=== PATIENT | male | born 1950 | race Caucasian/White ===

== ENCOUNTER → 2016-09-24 | Outpatient (REF) | payer MEDICARE ==
[~2016-09-24] MED LIST: ATEN50TA2 PO; LORA1TAB12 PO; SYMB80INH INH
[2016-09-24 11:41] LABS: FOLATE 12.7 NG/ML (>5.4)
== END ==
LOC: M SFHCCLAY 08:39
PROVIDERS: ATTEND Family Medicine
DX: R41.3 Other amnesia (principal); Z11.59 Encounter for screening for other viral diseases
CPT/HCPCS: 82607; 82746; 84443; 86803; G0463

== ENCOUNTER → 2018-02-27 | Outpatient (REF) | payer MEDICARE, MEDICAID | LOC: M SFHCCLAY 13:48 | PROVIDERS: ATTEND Family Medicine | DX: L97.919 Non-pressure chronic ulcer of unspecified part of right lower leg with unspecified severity (principal); I83.019 Varicose veins of right lower extremity with ulcer of unspecified site | CPT/HCPCS: 87070; 87077; 87186; G0463 ==

== ENCOUNTER → 2018-06-28 | Outpatient (REF) | payer MEDICARE ==
[2018-06-28 17:10] LABS: ALBUMIN 3.9 GM/DL (3.2-5.2); ALT/SGPT 26 U/L (12-78); BILIRUBIN,TOTAL 0.7 MG/DL (0.2-1.0); BLOOD UREA NITROGEN 10 MG/DL (7-18); CALCIUM LEVEL 8.8 MG/DL (8.8-10.2); CARBON DIOXIDE LEVEL 33 MEQ/L (21-32); CHLORIDE LEVEL 105 MEQ/L (98-107); CHOLESTEROL LEVEL 137 MG/DL (<200); CHOLESTEROL RISK RATIO 2.978 (<5); GLOMERULAR FILTRATION RATE > 60.0 (>49); GLUCOSE, FASTING 89 MG/DL (70-100); HDL CHOLESTEROL 46 MG/DL (>40); LDL CHOLESTEROL 80 MG/DL (<100); NON-HDL-C 91 MG/DL; POTASSIUM SERUM 4.2 MEQ/L (3.5-5.1); SODIUM LEVEL 140 MEQ/L (136-145); TOTAL PROTEIN 6.7 GM/DL (6.4-8.2); TRIGLYCERIDES LEVEL 55 MG/DL (<150)
[2018-06-28 17:27] LABS: BASO # 0.1 10^3/uL (0.0-0.2); BASO % 0.9 % (0.0-1.0); EOS # 0.4 10^3/uL (0.0-0.50); HEMATOCRIT 44.3 % (42.0-52.0); HEMOGLOBIN 14.9 g/dl (13.5-17.5); LYMPH # 1.5 10^3/uL (1.5-4.5); LYMPH % 21.5 % (24.0-44.0); MEAN CORPUSCULAR HEMOGLOBIN 29.2 pg (27.0-33.0); MEAN CORPUSCULAR HGB CONC 33.6 g/dl (32.0-36.5); MEAN CORPUSCULAR VOLUME 86.9 fl (80.0-96.0); MONO # 0.5 10^3/uL (0.0-0.8); MONO % 7.3 % (0.0-5.0); NEUTROPHILS # 4.6 10^3/uL (1.8-7.7); PLATELET COUNT, AUTOMATED 242 10^3/uL (150-450)
== END ==
LOC: M SFHCCLAY 10:34
PROVIDERS: ATTEND Family Medicine
DX: J45.909 Unspecified asthma, uncomplicated (principal); R07.89 Other chest pain

== ENCOUNTER → 2018-06-28 | Outpatient (CLI) | payer MEDICARE ==
--- NOTE | 2018-06-28 11:52 | REP ---
REASON: Atypical chest pain. COMPARISON: 10/09/2014 FINDINGS: The superior mediastinal structures are midline. The cardiac silhouette is unremarkable in size, shape, and position. The diaphragmatic surfaces of the lungs are regular, and the costophrenic angles are clear. The pulmonary ye are clear. The imaged osseous structures are intact. IMPRESSION: There is no acute cardiopulmonary disease.
== END ==
LOC: M CLY 10:43
PROVIDERS: ATTEND Family Medicine
DX: J45.909 Unspecified asthma, uncomplicated (principal); R07.89 Other chest pain

== ENCOUNTER → 2019-09-12 | Outpatient (REF) | payer MEDICARE ==
[~2019-09-12] MED LIST changes: -LORA1TAB12 PO; +LORA1TAB4 PO
[2019-09-12 12:28] LABS: BLOOD UREA NITROGEN 17 MG/DL (7-18); CARBON DIOXIDE LEVEL 32 MEQ/L (21-32); CHLORIDE LEVEL 101 MEQ/L (98-107); GLOMERULAR FILTRATION RATE > 60.0 (>42); GLUCOSE, FASTING 83 MG/DL (70-100); MAGNESIUM LEVEL 2.2 MG/DL (1.8-2.4); POTASSIUM SERUM 4.3 MEQ/L (3.5-5.1); SODIUM LEVEL 135 MEQ/L (136-145)
== END ==
LOC: M SFHCCLAY 09:38
PROVIDERS: ATTEND Family Medicine
DX: I87.2 Venous insufficiency (chronic) (peripheral) (principal); I10 Essential (primary) hypertension

== ENCOUNTER → 2019-10-12 | Outpatient (CLI) | payer MEDICARE, MEDICAID ==
--- NOTE | 2019-11-27 09:45 | REP ---
UNILATERAL RIGHT LOWER EXTREMITY ARTERIAL DOPPLER ULTRASOUND: HISTORY: Right leg pain. Left leg amputee. FINDINGS: Ankle-brachial index is normal on the right at 1.38. Mild plaquing is seen throughout the right leg. Monophasic wave forms are noted in the distal ADOLPH on the right, otherwise normal triphasic wave forms. No stenosis is visualized. RIGHT LOWER EXTREMITY VELOCITY CHART PSV RIGHT (cm/s) PRINCIPAL IOS DEVELOPER 119 Profunda 97 Proximal SFA 111 Mid-SFA 114 Distal SFA 90 Popliteal 72/106 Proximal ADOLPH 62 Tibioperoneal trunk 82 Proximal AUTOMOBILE TECHNICIAN 95 Distal AUTOMOBILE TECHNICIAN 98 Distal ADOLPH 76 MTDD
--- NOTE | 2019-11-27 09:49 | REP ---
UNILATERAL RIGHT LOWER EXTREMITY VENOUS DOPPLER WITH REFLUX EVALUATION HISTORY: Venous insufficiency. Unilateral left leg amputee. FINDINGS: There is a hypertrophied lymph node in the right groin measuring 3.7 x 1.2 x 3.7 cm. There are echogenic calcific foci along the right femoral vein and mid and distal region consistent with chronic deep vein thrombosis (DVT). Otherwise, the deep veins are anechoic and fully compressible from the groin to the popliteal fossa in the right lower extremity on two-dimensional scanning. Color flow imaging is homogeneous. Spectral Doppler interrogation demonstrates intact respiratory variation and flow and normal manual augmentation of flow. There is no evidence of acute DVT. 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 There is minimal reflux in the right common femoral, popliteal vein, and greater saphenous vein junction with the bed tipped and standing. The proximal greater saphenous vein at the saphenofemoral junction measures 2.8 mm in diameter and displays 1.2 second duration reflux. At mid thigh, the greater saphenous vein diameter is 4.9 mm and 4.9 second duration. Reflux is noted with standing. At the knee, the diameter is 4.6 mm and there is 3.9 second duration reflux. The lesser saphenous vein is 1.6 mm in diameter. Reflux was not observed. Anterior accessory greater saphenous vein is presented, but without observable reflux. IMPRESSION: Reflux as described above. There are echogenic foci in the right femoral vein mid and distal consistent with minimal old chronic deep vein thrombosis (DVT) residua. No acute deep vein thrombosis (DVT) seen. DEVON
== END ==
LOC: M RAD 11:37
PROVIDERS: ATTEND Physician Assistant
DX: I87.302 Chronic venous hypertension (idiopathic) without complications of left lower extremity (principal); M79.606 Pain in leg, unspecified; I87.2 Venous insufficiency (chronic) (peripheral)

== ENCOUNTER → 2022-01-29 | Outpatient (REF) | payer MEDICARE ==
[2022-01-29 11:41] LABS: BASO # 0.1 10^3/uL (0.0-0.2); BASO % 0.9 % (0.0-1.0); EOS # 0.4 10^3/uL (0.0-0.5); EOS % 4.2 % (0.0-3.0); HEMATOCRIT 43.9 % (42.0-52.0); HEMOGLOBIN 14.2 g/dl (13.5-17.5); LYMPH # 1.6 10^3/uL (1.5-5.0); LYMPH % 17.6 % (24.0-44.0); MEAN CORPUSCULAR HEMOGLOBIN 28.7 pg (27.0-33.0); MEAN CORPUSCULAR HGB CONC 32.3 g/dl (32.0-36.5); MEAN CORPUSCULAR VOLUME 88.7 fl (80.0-96.0); MONO # 0.7 10^3/uL (0.0-0.8); MONO % 7.9 % (2.0-8.0); NEUTROPHILS # 6.2 10^3/uL (1.5-8.5); NEUTROPHILS % 69.1 % (36.0-66.0); PLATELET COUNT, AUTOMATED 269 10^3/uL (150-450); RED BLOOD COUNT 4.95 10^6/uL (4.30-6.10); WHITE BLOOD COUNT 8.9 10^3/uL (4.0-10.0)
[2022-01-29 11:54] LABS: THYROID STIMULATING HORMONE 2.501 uIU/ML (0.55-4.78)
[2022-01-29 11:57] LABS: RHEUMATOID FACTOR QUANT 3.9 IU/ML (<14)
[2022-01-29 11:58] LABS: ALBUMIN 3.9 G/DL (3.2-5.2); ALKALINE PHOSPHATASE 52 U/L (46-116); ALT/SGPT 18 U/L (7.0-40); AST/SGOT 20 U/L (<34); BILIRUBIN,TOTAL 0.7 MG/DL (0.3-1.2); BLOOD UREA NITROGEN 17 MG/DL (9-23); CALCIUM LEVEL 9.5 MG/DL (8.3-10.6); CARBON DIOXIDE LEVEL 27 MMOL/L (20-31); CHLORIDE LEVEL 99 MMOL/L (98-107); CHOLESTEROL LEVEL 135 MG/DL (<200); CHOLESTEROL RISK RATIO 2.47 (<5); GLOMERULAR FILTRATION RATE > 60.0 (>42); GLUCOSE, FASTING 91 MG/DL (74-106); HDL CHOLESTEROL 54.6 MG/DL (>40); NON-HDL-C 80 MG/DL; POTASSIUM SERUM 4.5 MMOL/L (3.5-5.1); SODIUM LEVEL 137 MMOL/L (136-145); TOTAL PROTEIN 6.8 G/DL (5.7-8.2); TRIGLYCERIDES LEVEL 32 MG/DL (<150); URIC ACID 6.3 MG/DL (3.7-9.2)
[2022-01-29 12:23] LABS: ERYTHROCYTE SEDIMENTATION RATE 8 mm/hr (0-20)
== END ==
LOC: M SFHCCLAY 08:06
PROVIDERS: ATTEND Family Medicine
DX: M19.90 Unspecified osteoarthritis, unspecified site (principal); I10 Essential (primary) hypertension; J44.9 Chronic obstructive pulmonary disease, unspecified

== ENCOUNTER → 2023-11-16 | Outpatient (REF) | payer MEDICARE ==
[~2023-11-16] MED LIST changes: +LORA1TAB23 PO; -LORA1TAB4 PO
[2023-11-16 17:50] LABS: HEMATOCRIT 40.3 % (42.0-52.0); HEMOGLOBIN 13.5 g/dl (13.5-17.5); MEAN CORPUSCULAR HEMOGLOBIN 29.4 pg (27.0-33.0); MEAN CORPUSCULAR HGB CONC 33.5 g/dl (32.0-36.5); MEAN CORPUSCULAR VOLUME 87.8 fl (80.0-96.0); PLATELET COUNT, AUTOMATED 288 10^3/uL (150-450); RED BLOOD COUNT 4.59 10^6/uL (4.30-6.10); WHITE BLOOD COUNT 8.9 10^3/uL (4.0-10.0)
[2023-11-16 18:19] LABS: ALBUMIN 3.8 G/DL (3.2-5.2); ALKALINE PHOSPHATASE 57 U/L (46-116); ALT/SGPT 19 U/L (7.0-40); AST/SGOT 18 U/L (<34); BILIRUBIN,TOTAL 0.7 MG/DL (0.3-1.2); BLOOD UREA NITROGEN 16 MG/DL (9-23); CARBON DIOXIDE LEVEL 29 MMOL/L (20-31); CHLORIDE LEVEL 105 MMOL/L (98-107); CHOLESTEROL LEVEL 148 MG/DL (<200); CHOLESTEROL RISK RATIO 2.54 (<5); CREATININE FOR GFR 0.67 MG/DL (0.70-1.30); GLOMERULAR FILTRATION RATE > 60.0 (>42); GLUCOSE, FASTING 86 MG/DL (74-106); HDL CHOLESTEROL 58.1 MG/DL (>40); LDL CHOLESTEROL 80.3 MG/DL (<100); NON-HDL-C 89.9 MG/DL; POTASSIUM SERUM 4.3 MMOL/L (3.5-5.1); PSA SCREENING 0.86 NG/ML (< 4.00); SODIUM LEVEL 136 MMOL/L (136-145); THYROID STIMULATING HORMONE 1.471 uIU/ML (0.55-4.78); TOTAL PROTEIN 6.8 G/DL (5.7-8.2); TRIGLYCERIDES LEVEL 48 MG/DL (<150)
[2023-11-16 18:20] LABS: FREE T4 1.15 NG/DL (0.89-1.76); VITAMIN B12 LEVEL 468 PG/ML (211-911)
== END ==
LOC: M SFHCCLAY 10:49
PROVIDERS: ATTEND Family Medicine
DX: J44.9 Chronic obstructive pulmonary disease, unspecified (principal); M19.90 Unspecified osteoarthritis, unspecified site; I10 Essential (primary) hypertension; I87.2 Venous insufficiency (chronic) (peripheral); R41.3 Other amnesia; Z12.5 Encounter for screening for malignant neoplasm of prostate; Z11.3 Encounter for screening for infections with a predominantly sexual mode of transmission; Z72.89 Other problems related to lifestyle
CPT/HCPCS: 80053; 80061; 82607; 84439; 84443; 85027; 86780; G0103

== ENCOUNTER → 2024-01-25 | Outpatient (REF) | payer MEDICARE | LOC: M SFHCCLAY 09:38 | PROVIDERS: ATTEND Family Medicine | DX: K86.2 Cyst of pancreas (principal); D37.8 Neoplasm of uncertain behavior of other specified digestive organs ==

== ENCOUNTER → 2024-02-16 | Outpatient (REF) | payer MEDICARE | LOC: M SFHCCLAY 09:49 | PROVIDERS: ATTEND Physician Assistant | DX: R19.7 Diarrhea, unspecified (principal) ==

== ENCOUNTER → 2024-02-24 | Outpatient (REF) | payer MEDICARE | LOC: M SFHCCLAY 09:38 | PROVIDERS: ATTEND Physician Assistant | DX: R19.7 Diarrhea, unspecified (principal) ==

== ENCOUNTER → 2024-07-09 | Outpatient (REF) | payer MEDICARE | LOC: M SFHCCLAY 08:15 | PROVIDERS: ATTEND Physician Assistant | DX: Z53.21 Procedure and treatment not carried out due to patient leaving prior to being seen by health care provider (principal) ==

== ENCOUNTER → 2024-07-10 | Outpatient (REF) | payer MEDICARE | LOC: M SFHCCLAY 07:34 | PROVIDERS: ATTEND Physician Assistant | DX: R19.5 Other fecal abnormalities (principal) ==